=== PATIENT | female | born 1975 | race Caucasian/White ===

== ENCOUNTER 2019-04-25 09:03 | Observation (INO) ==
[2019-04-25] MEDS ORDERED: ONDANSETRON 4 MG/2 ML VIAL IVP ONE (09:30)
[2019-04-25] MEDS ORDERED: Sodium Chloride 0.9% 1,000 ML PRIMARY IV ONE ×2 (09:30→14:52)
[2019-04-25] MEDS ORDERED: HYDROmorphone 2 MG/1 ML IVP ONE ×2 (09:34→12:45)
[2019-04-25 09:41] LABS: BASOPHILS # (AUTO) 0.05 10*3/UL; BASOPHILS % (AUTO) 0.4 % (0-1); EOSINOPHILS # (AUTO) 0.08 10*3/UL; EOSINOPHILS % (AUTO) 0.7 % (0-8); Hematocrit [HCT] 45.4 % (37.0-47.0); Hemoglobin [HGB] 15.4 g/dL (12.0-16.0); LYMPHOCYTES # (AUTO) 3.14 10*3/uL; MEAN CORPUSCULAR HGB CONC 33.9 g/dL (33-37); MEAN CORPUSCULAR VOLUME 83.5 FL (81-99); MEAN PLATELET VOLUME 9.3 FL (7.4-12.2); MONOCYTES # (AUTO) 0.58 10*3/UL (0.3-0.8); MONOCYTES % (AUTO) 4.9 % (5-15); NEUTROPHILS # (AUTO) 7.85 10*3/UL; RED BLOOD COUNT 5.44 10^6/uL (4.20-5.40)
[2019-04-25 09:48] LABS: PLATELET MORPHOLOGY COMMENT NORMAL MORPHOLOGY (NORM); RBC MORPHOLOGY COMMENT NORMAL MORPHOLOGY (NORM); WBC MORPHOLOGY COMMENT NORMAL MORPHOLOGY (NORM)
[2019-04-25 09:53] LABS: BUN/CREATININE RATIO 18.23 (6-20); SERUM ALBUMIN 5.3 g/dL (3.5-4.8)
[2019-04-25 10:39] LABS: BILIRUBIN,URINE SMALL (NEG); CLARITY,URINE CLEAR (CLEAR); COLOR,URINE YELLOW (Y); GLUCOSE, URINE (UA) NEGATIVE (NEG); OCCULT BLOOD,URINE Trace-intact (NEG); PH,URINE 6.5 (5.0-8.5); PROTEIN,URINE TRACE mg/dl (NEG); UROBILINOGEN,URINE 0.2 EU/dL (0.2)
[2019-04-25 10:40] LABS: URINE SAMPLE TYPE CLEAN CATCH URINE
[2019-04-25 10:47] LABS: AMPHETAMINE SCREEN NEGATIVE (NEG); CANNABINOID SCREEN,URINE POSITIVE (NEG); COCAINE SCREEN NEGATIVE (NEG); METHADONE URINE SCREEN NEGATIVE (NEG); METHAMPHETAMINES SCREEN,URINE NEGATIVE (NEG); OPIATE SCREEN,URINE POSITIVE (NEG)
[2019-04-25 11:43] LABS: VENOUS PH 7.57 (7.32-7.42)
[2019-04-25] MEDS ORDERED: Sodium Chloride 0.9% 500 ML PRIMARY IV ONE (12:00)
[2019-04-25] MEDS ORDERED: Ertapenem Inj 1 GM in Sodium Chloride 0.9% 100 ML IV ONE (12:37)
[2019-04-25] MEDS ORDERED: Magnesium Sulfate 2gm (Premix) 2 GM/50 ML BAG IV ONE (14:52)
[2019-04-25] MEDS ORDERED: LIDOCAINE W/ SODIUM BICARB 0.5 ML SYR SUBD PRN (14:52)
[2019-04-25] MEDS: Lactated Ringers 1,000 ML PRIMARY IV SCH (16:49)
[2019-04-25] MEDS: ONDANSETRON 4 MG/2 ML VIAL IVP PRN (18:06)
[2019-04-25 19:55] VITALS: RESP 20
[2019-04-25] MEDS ORDERED: LORazepam 2 MG/1 ML VIAL IVP ONE (20:00)
[2019-04-25] MEDS: HYDROmorphone 2 MG/1 ML IVP PRN (20:38)
[2019-04-26] MEDS: ONDANSETRON 4 MG/2 ML VIAL IVP PRN (01:20)
[2019-04-26] MEDS: HYDROmorphone 2 MG/1 ML IVP PRN (01:21)
[2019-04-26 03:01] VITALS: O2SAT 93
[2019-04-26] MEDS: Lactated Ringers 1,000 ML PRIMARY IV SCH ×2 (03:29→05:24)
[2019-04-26 06:09] LABS: BASOPHILS # (AUTO) 0.04 10*3/UL; BASOPHILS % (AUTO) 0.6 % (0-1); EOSINOPHILS # (AUTO) 0.26 10*3/UL; EOSINOPHILS % (AUTO) 3.7 % (0-8); Hematocrit [HCT] 33.5 % (37.0-47.0); LYMPHOCYTES # (AUTO) 3.12 10*3/uL; MEAN CORPUSCULAR HGB CONC 32.8 g/dL (33-37); MEAN CORPUSCULAR VOLUME 87.5 FL (81-99); MONOCYTES # (AUTO) 0.57 10*3/UL (0.3-0.8); MONOCYTES % (AUTO) 8.1 % (5-15); NEUTROPHILS # (AUTO) 3.04 10*3/UL; NEUTROPHILS % (AUTO) 43.2 % (50-80); RED BLOOD COUNT 3.83 10^6/uL (4.20-5.40)
[2019-04-26 06:12] LABS: BLOOD UREA NITROGEN 17 mg/dL (7-22); BUN/CREATININE RATIO 15.45 (6-20)
[2019-04-26 06:17] LABS: PLATELET MORPHOLOGY COMMENT NORMAL MORPHOLOGY (NORM); RBC MORPHOLOGY COMMENT NORMAL MORPHOLOGY (NORM); WBC MORPHOLOGY COMMENT NORMAL MORPHOLOGY (NORM)
[2019-04-26 09:26] VITALS: BP 107/62; TEMP 98.7
== END 2019-04-26 11:18 | disposition home or self-care (01) ==
LOC: MED/SURG 09:03 → ER 09:03
PROVIDERS: ADMIT Internal Medicine; ATTEND Internal Medicine